=== PATIENT | female | born 1970 | race Caucasian/White ===

== ENCOUNTER → 2018-02-19 | Outpatient (CLI) | payer BC ==
--- NOTE | 2018-02-23 08:01 | MM ---
Reason for exam: screening (asymptomatic). MG Screening Mammo w CAD Bilateral CC and MLO view(s) were taken. The breast tissue is extremely dense which could obscure a lesion on mammography. No discrete abnormality. ASSESSMENT: Negative, BI-RAD 1 RECOMMENDATION: Routine screening mammogram of both breasts in 1 year.
== END | disposition home or self-care (01) ==
LOC: RADMAMWWP 07:10
PROVIDERS: ATTEND Family Medicine
DX: Z12.31 Encounter for screening mammogram for malignant neoplasm of breast (principal)
CPT/HCPCS: 77067

== ENCOUNTER → 2020-11-03 | Outpatient (CLI) | payer BC ==
--- NOTE | 2020-11-04 13:42 | MM ---
Reason for exam: screening (asymptomatic). Last mammogram was performed 2 years and 8 months ago. Physical Findings: A clinical breast exam by your physician is recommended on an annual basis and results should be correlated with mammographic findings. MG 3D Screening Mammo W/Cad Bilateral CC and MLO view(s) were taken. Prior study comparison: February 19, 2018, bilateral MG screening mammo w CAD. The breast tissue is heterogeneously dense. This may lower the sensitivity of mammography. There is no discrete abnormality. No significant changes when compared with prior studies. ASSESSMENT: Negative, BI-RAD 1 RECOMMENDATION: Routine screening mammogram of both breasts in 1 year.
== END | disposition home or self-care (01) ==
LOC: RADMAMWWP 11:35
PROVIDERS: ATTEND Family Medicine
DX: Z12.31 Encounter for screening mammogram for malignant neoplasm of breast (principal)
CPT/HCPCS: 77063; 77067

== ENCOUNTER → 2020-11-15 | Outpatient (CLI) | payer BC ==
--- NOTE | 2020-11-15 13:12 | US ---
EXAMINATION TYPE: US abdomen complete DATE OF EXAM: 11/15/2020 COMPARISON: NONE CLINICAL HISTORY: 50-year-old female R10.9 Unspecified abdominal pain. Diarrhea post prandial x 3 mon ths. No c/o N/V or pain TECHNIQUE: Multiple sonographic images of the abdomen are obtained. FINDINGS: EXAM MEASUREMENTS: Liver Length: 16.9 cm Gallbladder Wall: Varying between 5 and 7 mm in thickness CBD: 0.8 cm Spleen: 8.7 cm Right Kidney: 11.4 x 4.9 x 4.7 cm Left Kidney: 12.2 x 5.8 x 5.0 cm Pancreas: The majority of the pancreas is visualized and shows no gross abnormally. Liver: There is a lobulated 2.8 cm cyst within the mid liver with some internal debris and thin inte rnal septations. Some mural based nodularity measures up to 8 mm. Gallbladder: With stones and debris, thickened wall. No surrounding fluid seen. Evidence for sonographic Mukherjee's sign: No CBD: enlarged with echogenic focus = 0.7 cm. ? stone however no shadowing seen. Spleen: No masses seen. Right Kidney: No hydronephrosis. Left Kidney: There is a cortical bar which traverses the mid pole, possible duplicated collecting sys tem. No hydronephrosis. Upper IVC: wnl Abd Aorta: wnl IMPRESSION: 1. Gallbladder wall thickening with a stones and debris. A sonographic Mukherjee sign is reported absent , consider chronic cholecystitis. HIDA scan with ejection fraction to be performed for further evalua tion. 2. Bile duct dilated to 8 mm. Also, possible choledocholithiasis with a 7 mm filling defect. Correlat e with alkaline phosphatase and bilirubin levels. ERCP or MRCP as clinically indicated. 3. Mildly complex cyst measuring 2.8 cm within the mid liver. 6 month follow-up ultrasound to reasses s.
== END | disposition home or self-care (01) ==
LOC: RADUSWWP 09:41
PROVIDERS: ATTEND Family Medicine
DX: N21.0 Calculus in bladder (principal); K81.1 Chronic cholecystitis
CPT/HCPCS: 76700

== ENCOUNTER → 2021-03-07 | Outpatient (CLI) | payer BC ==
--- NOTE | 2021-03-07 09:54 | MR ---
EXAMINATION TYPE: MR MRCP DATE OF EXAM: 03/07/2021 COMPARISON: Ultrasound abdomen November 15, 2020 HISTORY: choledocholithiasis Standard multiplanar, multisequence MRI departmental protocol Multiplanar, multisequence images of the abdomen were acquired without contrast. Diffusion weighted i maging was performed. Standard and thick slice MRCP images performed on independent workstation and r eviewed. FINDINGS: Exam suboptimal due to motion artifact. Liver/gallbladder/pancreas/biliary system: The liver is normal in size. In the left hepatic lobe ther e is redemonstration of lobulated 3.1 x 2.0 x 1.7 cm thin-walled cyst axial image 41 and coronal imag e 16, some thin septa are felt present. There are approximately 3-6subcentimeter round and oval T2 hy perintense lesions favoring additional thin-walled cysts throughout the liver on MRI not clearly seen on ultrasound. Pancreas is normal in size without concerning solid or cystic mass. Gallbladder is co ntracted in appearance with intraluminal gallstones. Gallbladder wall is thickened up to 5 mm anterio r aspect axial image 24. There is some loss of surrounding fat plane adjacent to the gallbladder wall . MRCP imaging shows visualization of pancreatic duct which is not dilated. Common bile duct measures up to 6 mm near angelic hepatis which is upper limits of normal. No intraluminal filling defect or marilee culus is seen. There is some tapering at the ampulla seen best on MRCP images. Other: Spleen and both adrenal glands appear within normal limits. No concerning renal mass or hydron ephrosis is seen bilaterally. No suspicious bowel dilatation. Osseous structures are intact. No intra-abdominal ascites. IMPRESSION: Abnormal appearance of gallbladder with intraluminal gallstones and gallbladder wall thic kening. No biliary dilatation. No CBD stone identified.
== END | disposition home or self-care (01) ==
LOC: RADMRIMAIN 07:49
PROVIDERS: ATTEND Surgery
DX: K80.80 Other cholelithiasis without obstruction (principal)
CPT/HCPCS: 74181

== ENCOUNTER 2021-07-15 08:57 | Day surgery (SDC) | payer BC ==
[2021-07-13 16:28] VITALS: BMI 31.7
--- NOTE | 2021-07-15 08:04 | P.GSHP ---
History of Present Illness H&P Date: 07/15/21 Chief Complaint: Chronic cholecystitis 50-year-old female or today for elective cholecystectomy. Has been having abdominal complaints for quite some time. Patient states the greasy foods usually sits off these abdominal issues. Frequent complaints of cramps and diarrhea. Bloating is present. Some upper abdominal pain although no discrete right upper quadrant pain usually. Patient had an ultrasound showing possible CBD abnormality in addition to gallstones. Patient had an MRCP showing gallbladder wall thickening with gallstones and debris. The common bile duct itself appeared normal. Denies any change in the color of her skin urine or stool. Past Medical History Additional Past Medical History / Comment(s): GALLBLADDER DISORDER History of Any Multi-Drug Resistant Organisms: None Reported Past Surgical History: Hysterectomy Past Anesthesia/Blood Transfusion Reactions: No Reported Reaction Smoking Status: Former smoker - Past Family History Son(s) Family Medical History: Cancer Additional Family Medical History / Comment(s): STAGE IV MELANOMA Medications and Allergies Home Medications Medication Instructions Recorded Confirmed Type No Known Home Medications 07/13/21 07/13/21 History Allergies Allergy/AdvReac Type Severity Reaction Status Date / Time No Known Allergies Allergy Verified 07/13/21 16:24 Surgical - Exam Physical exam: General: Well-developed, well-nourished HEENT: Normocephalic, sclerae nonicteric Abdomen: Nontender, nondistended Extremities: No edema Neuro: Alert and oriented Assessment and Plan (1) Chronic cholecystitis Narrative/Plan: Will proceed with laparoscopic, possible open cholecystectomy at this time. Risks of bleeding, infection, bile leak, bile duct injury, retained common bile duct stone, trocar injury, conversion to an open procedure, hernia, anesthesia related complications were reviewed. The patient understands and wishes to proceed. Status: Acute Code(s): K81.1 - CHRONIC CHOLECYSTITIS SNOMED Code(s): 99086700
[~2021-07-15 08:57] MED LIST: ACETAMINOPHEN TAB 500 MG TAB PO PRN; DEXAMETHASONE SOD PHOSPHATE 4 MG/ML 1 ML VIAL IV ONE; HEPARIN SODIUM,PORCINE/PF 5,000 UNIT/0.5 ML SYRINGE SQ PRN; HYDROmorphone 0.5 MG/0.5 ML SYRINGE IVP PRN; LACTATED RINGERS 1,000 ML IV SCH; MIDAZOLAM 2 MG/2 ML VIAL IV PRN; ONDANSETRON 4 MG/2 ML VIAL IVP ONE; SCOPOLAMINE 1 MG/72 HR PATCH TRANSDERM ONE
[2021-07-15] MEDS ORDERED: SUCCINYLCHOLINE CHLORIDE 100 MG/5 ML SYR IV ONE (09:53)
[2021-07-15] MEDS ORDERED: HYDROmorphone (PF) 1 MG/ML ONE (09:53)
[2021-07-15] MEDS ORDERED: GLYCOPYRROLATE 0.2 MG/ML 2 ML VIAL ONE (09:53)
[2021-07-15] MEDS ORDERED: KETOROLAC 15 MG/ML 1 ML VIAL ONE (09:53)
[2021-07-15] MEDS ORDERED: PROPOFOL 10 MG/ML 20 ML VIAL IV ONE (09:53)
[2021-07-15] MEDS ORDERED: fentaNYL (PF) 50 MCG/ML 2 ML AMP ONE (09:53)
[2021-07-15] MEDS ORDERED: MIDAZOLAM 2 MG/2 ML VIAL ONE (09:53)
[2021-07-15] MEDS ORDERED: NEOSTIGMINE 1 MG/ML 10 ML VIAL ONE (09:53)
[2021-07-15] MEDS ORDERED: LIDOCAINE 2% INJ 20 MG/ML (2 ML VIAL) ONE (09:53)
[2021-07-15] MEDS ORDERED: ROCURONIUM 10 MG/ML (5 ML VIAL) IV ONE (09:53)
[2021-07-15] MEDS ORDERED: BUPIVACAINE (PF) 0.25% 30 ML VIAL SQ ONE (10:01)
--- NOTE | 2021-07-15 11:23 | P.OP ---
Date of Procedure: 07/15/21 Procedure(s) Performed: PREOPERATIVE DIAGNOSIS: Chronic cholecystitis POSTOPERATIVE DIAGNOSIS: Same PROCEDURE: Laparoscopic cholecystectomy SURGEON: Samuel EBL: Minimal see anesthesia record ANESTHESIA: Gen. COMPLICATIONS: None OPERATIVE PROCEDURE: The patient was brought and placed on the operating room table in the supine position. The patient was placed under general anesthesia at that time. The abdomen was prepped and draped in the usual sterile fashion. A small vertical infraumbilical incision was made. The fascia was grasped with the Donna forceps. The fascia was retracted anteriorly. The Veress needle was advanced into the peritoneal cavity. The saline drop test was normal. Insufflation took place up to 15 mmHg. A 5 mm optical trocar was advanced and the peritoneal cavity. 2 additional 5 mm trochars were placed in the right upper quadrant under direct visualization. A 12 mm trocar was advanced into the epigastric incision site. The gallbladder was retracted superiorly and laterally. The peritoneum overlying the infundibulum was bluntly dissected. The patient's cystic duct was visualized. The junction between the cystic duct common and hepatic duct was identified. The critical view of safety was achieved after blunt dissection. The cystic duct was then divided after placement of 3 12 mm clips on the patient's side and one on the specimen side. The cystic artery was identified and clipped as well. A small vessel was seen along the gallbladder fossa and clipped as well. The gallbladder was then removed from the liver bed using electrocautery. The gallbladder was then removed from the epigastric trocar site with an Endo Catch bag. The gallbladder fossa was irrigated with saline. There was no evidence of any bleeding or biliary drainage seen. The fascia at the 12 millimeter site was closed using a Randall-Mary 0 Vicryl stitch. The trochars were then removed. The skin at all 4 sites was closed using a 4-0 Monocryl stitch. Skin glue was utilized on the incision sites. At the end of this procedure the sponge and needle counts were correct. DISPOSITION: Stable to the recovery room
[2021-07-15 11:28] VITALS: TEMP 98.3
[2021-07-15] MEDS ORDERED: ACETAMINOPHEN TAB 325 MG TAB PO SCH (12:00)
[2021-07-15 12:45] VITALS: RESP 20
[2021-07-15 13:22] VITALS: BP 110/66; PULSE 84
[2021-07-15] MEDS ORDERED: IBUPROFEN 600 MG TAB PO SCH (15:00)
== END 2021-07-15 13:45 | disposition home or self-care (01) ==
LOC: OR 08:57
PROVIDERS: ATTEND Surgery
DX: K80.12 Calculus of gallbladder with acute and chronic cholecystitis without obstruction (principal); Z90.710 Acquired absence of both cervix and uterus; E11.9 Type 2 diabetes mellitus without complications; F90.9 Attention-deficit hyperactivity disorder, unspecified type; Z87.891 Personal history of nicotine dependence; Z80.8 Family history of malignant neoplasm of other organs or systems
CPT/HCPCS: 88304; 47562; J2250; J2710; J0690; J3010; J1170 ×2; J1885; J0330; J2704; J2001

== ENCOUNTER → 2024-09-05 | Outpatient (CLI) | payer BC ==
--- NOTE | 2024-09-07 18:12 | CT ---
EXAMINATION TYPE: CT heart w calcium score DATE OF EXAM: 09/05/2024 COMPARISON: None CLINICAL INDICATION: Female, 53 years old with history of Z82.49 family hx heart disease; PHH, FAMILY HX OF HEART DISEASE TECHNIQUE: Prospective Gating was used. Slice thickness: 3mm. Density threshold (HU): 130, Pixel threshold: 3, Algorithm: discrete. CT DLP: [address] CTDI: 3.78 mGy Automated exposure control for dose reduction was used. FINDINGS: CT CALCIUM SCORING Coronary calcium is a marker for plaque (fatty deposits) in a blood vessel or atherosclerosis (harden ing of the arteries). The presence and amount of calcium detected in a coronary artery by the CT sca n, indicates the presence and amount of atherosclerotic plaque. These calcium deposits appear years before the development of heart disease symptoms such as chest pain and shortness of breath. A calcium score is computed for each of the coronary arteries based upon the volume and density of th e calcium deposits. This can be referred to as your calcified plaque burden. It does not correspond directly to the percentage of narrowing in the artery but does correlate with the severity of the un derlying coronary atherosclerosis. RESULTS Region: LM Calcium Score ([place]): 0 Volume (mm3): 0 Mass (g): 0 Region: RCA Calcium Score ([place]): 0 Volume (mm3): 0 Mass (g): 0 Region: LAD Calcium Score ([place]): 0 Volume (mm3): 0 Mass (g): 0 Region: CX Calcium Score ([place]): 0 Volume (mm3): 0 Mass (g): 0 Region: PDA Calcium Score ([place]): 0 Volume (mm3): 0 Mass (g): 0 Total: Calcium Score ([place]): 0 Volume (mm3): 0 Mass (g): 0 INCIDENTAL: 3.6 cm hypodense lesion mid liver suggestive of a cyst. Tiny hiatal hernia is present. IMPRESSION: Calcium Score: 0 Implication: No identifiable plaque. Risk of Coronary Artery Disease: Very low, generally less than 5%. CALCIUM SCORE IMPLICATION RISK OF C ORONARY ARTERY DISEASE 0 No identifiable plaque Very low, generally less than 5% 1-10 Minimal identifiable plaque Very unlikely, less than 10% 11-100 Definite, at least mild atherosclerotic plaque Mild or m inimal coronary narrowings likely 101-400 Definite, at least moderate atherosclerotic plaque Mild coronary ar starla disease highly likely, significant narrowing possible 401 or Higher Extensive atherosclerotic plaque High lik elihood of at least one significant coronary narrowing [facility], , 09/07/2024 6:10 PM
== END | disposition home or self-care (01) ==
LOC: RADCTMAIN 06:45
PROVIDERS: ATTEND Family Medicine
DX: Z82.49 Family history of ischemic heart disease and other diseases of the circulatory system (principal)
CPT/HCPCS: 75571

== ENCOUNTER → 2024-09-05 | Outpatient (CLI) | payer BC ==
--- NOTE | 2024-09-05 08:46 | MM ---
Reason for Exam: Screening (asymptomatic). Last mammogram was performed 3 year(s) and 10 month(s) ago. Patient History: Menarche at age 15. First Full-Term at age 20. Hysterectomy at age 44. Risk Values: Nicole 5 year model risk: 0.7%. NCI Lifetime model risk: 6.4%. Prior Study Comparison: 02/19/2018 Bilateral Screening Mammogram, [facility]. 11/03/2020 Bilateral Screening Mammogram, [facility]. Tissue Density: The breasts are heterogeneously dense, which may obscure small masses. Findings: Analyzed By CAD. Right breast: There is no suspicious group of microcalcifications or new suspicious mass. Left breast: There is no suspicious group of microcalcifications or new suspicious mass. Overall Assessment: Negative, BI-RAD 1 Management: Screening Mammogram of both breasts in [address] [facility] will attempt to contact patient to return for supplemental views and ultrasound if indicated. Patient should continue monthly self-breast exams. A clinical breast exam by your physician is recommended on an annual basis. This exam should not preclude additional follow-up of suspicious palpable abnormalities. Note on Nicole scores and lifetime risk: 1. A Nicole score greater than 3% is considered moderate risk. If this is the case, consider specialist referral to assess eligibility for a risk reducing agent. 2. If overall lifetime risk for the development of breast cancer is 20% or higher, the patient may qualify for future screening with alternating mammogram and breast MRI. [facility], , 09/05/2024 8:43 AM. Electronically signed and approved by: Black Castro DO
== END | disposition home or self-care (01) ==
LOC: RADMAMWWP 06:51
PROVIDERS: ATTEND Family Medicine
DX: Z12.31 Encounter for screening mammogram for malignant neoplasm of breast (principal); R92.333 Mammographic heterogeneous density, bilateral breasts
CPT/HCPCS: 77063; 77067

== ENCOUNTER 2024-09-09 09:49 | Day surgery (SDC) | payer BC ==
[2024-09-08 11:49] VITALS: BMI 33.5
[2024-09-09 10:39] VITALS: TEMP 97.4
[2024-09-09] MEDS: LACTATED RINGERS 1,000 ML IV SCH (10:49)
[2024-09-09] MEDS: IV FLUID CONTINUATION 1,000 ML IV ONE (10:50)
[2024-09-09] MEDS ORDERED: PROPOFOL 10 MG/ML 20 ML VIAL IV ONE (11:45)
--- NOTE | 2024-09-09 12:03 | P.PCN ---
Date of Procedure: 09/09/24 Procedure(s) Performed: BRIEF HISTORY: Patient is a 53-year-old pleasant white female scheduled for an elective colonoscopy as a part of screening for colon cancer and history of colon cancer. Her brother was diagnosed with cancer at age 53. PROCEDURE PERFORMED: Colonoscopy. PREOPERATIVE DIAGNOSIS: Screening for colon cancer/family history of colon cancer. IV sedation per Anesthesia. PROCEDURE: After informed consent was obtained, the patient, was brought into the endoscopy unit. IV sedation was administered by Anesthesia under continuous monitoring. Digital rectal examination was normal. Initially the Olympus CF-160 flexible video colonoscope was then inserted in the rectum, gradually advanced into the cecum without any difficulty. Careful examination was performed as the scope was gradually being withdrawn. Ileocecal valve and the appendiceal orifice were visualized and appeared normal. Prep was excellent. Mucosa of the cecum, ascending colon, transverse colon, descending colon, sigmoid colon, and rectum appeared normal. Retroflexion was performed in the rectum and no lesions were seen. The patient tolerated the procedure well. IMPRESSION: Normal-appearing colon from rectum to cecum with no evidence of colorectal neoplasia. RECOMMENDATIONS: Findings of this examination were discussed with the patient as well as her family. She was advised to have repeat screening colonoscopy every 5 years because of the family history of colon cancer. 53
[2024-09-09 12:23] VITALS: BP 126/80; PULSE 70; RESP 14
== END 2024-09-09 12:38 | disposition home or self-care (01) ==
LOC: ORWHC2ENDO 09:49
PROVIDERS: ATTEND Internal Medicine Gastroenterology
DX: Z12.11 Encounter for screening for malignant neoplasm of colon (principal); Z80.0 Family history of malignant neoplasm of digestive organs; Z79.899 Other long term (current) drug therapy
CPT/HCPCS: 45378; J2704